=== PATIENT | male | born 1990 | race Caucasian/White ===

== ENCOUNTER 2019-12-06 23:23 | Emergency (ER) | payer SELFPAY ==
[~2019-12-06] VITALS: Ht 180.3 cm; Wt 102.3 kg
[2019-12-06 23:30] VITALS: BP 117/72; Ht 180.3 cm; Wt 102.3 kg
== END 2019-12-07 00:01 | disposition home or self-care (01) ==
LOC: D.ER 23:23
DX: T15.92XA Foreign body on external eye, part unspecified, left eye, initial encounter (principal); S05.02XA Injury of conjunctiva and corneal abrasion without foreign body, left eye, initial encounter; X58.XXXA Exposure to other specified factors, initial encounter